=== PATIENT | male | born 1945 | race Caucasian/White ===

== ENCOUNTER 2016-10-30 17:52 | Emergency (ER) | payer OTHER ==
[~2016-10-30] VITALS: Ht 185.4 cm; Wt 118.0 kg
[~2016-10-30 17:52] MED LIST: COUM6TAB PO; ENOX120P SQ
[2016-10-30 17:53] VITALS: BP 125/68; PULSE 68; RESP 14; TEMP 97.9; O2SAT 98
--- NOTE | 2016-10-30 18:06 | PD ---
Physical Exam Date Seen by Provider: Oct 30, 2016 Time Seen by Provider: 18:04 Narrative 70 year old male presents to the emergency department for evaluation of left leg pain and swelling that has been worsening over the past 2 months. He reports history of DVT, DM. He is on Coumadin, last INR 2.0 two weeks ago. Patient awaiting bed placement. Data Data Last Documented VS Vital Signs Date Time Temp Pulse Resp B/P Pulse Ox O2 Delivery O2 Flow Rate FiO2 10/30/16 17:53 97.9 68 14 125/68 98 MDM Supervised Visit with KIRBY: Taryn Stevens Oct 30, 2016 18:06
[2016-10-30] MEDS ORDERED: FOLI1CAP7 PO (18:27)
[2016-10-30] MEDS ORDERED: COUM6TAB PO (18:27)
[2016-10-30] MEDS ORDERED: METF1000 PO (18:27)
[2016-10-30 18:28] VITALS: O2SAT 98
[2016-10-30] MEDS ORDERED: SODIUM CHLORIDE 0.9% FLUSH 10 ML FLUSH IV FLUSH PRN (18:30)
--- NOTE | 2016-10-30 18:30 | PD ---
HPI Chief Complaint: Pain: Acute or Chronic Time Seen by Provider: 18:21 Travel History International Travel<30 days: No Contact w/Intl Traveler<30days: No Traveled to known affect area: No History of Present Illness HPI 70-year-old male with history of DVT on Coumadin, diabetes, here for evaluation of left leg pain and swelling. The patient reports that he has had the symptoms for last 3 months, worse with a last couple of days. Initially the pain only bothered him at night with increased sensitivity to the left calf/ leg. He was seen by his primary care physician who told him that he likely has diabetic neuropathy. Pain today is moderate, more frequent, worse with movement and palpation. He denies chest pain or dyspnea. No fevers or chills. No trauma. He reports that he was here about 6 months ago and had a subtherapeutic INR. He reports that his last INR was 2.0, however month ago it was 1.7, and the month before that it was 1.3. PFSH Past Medical History Hx Anticoagulant Therapy: Yes AAA: Yes Cardiovascular Problems: Yes (ANGIOPLASTY ) High Cholesterol: Yes Diabetes: Yes Patient Takes Glucophage: Yes Deep Vein Thrombosis: Yes Hypertension: Yes Tetanus Vaccination: Unknown Past Surgical History Appendectomy: Yes Cardiac Surgery: Yes (ATRIOPLASTY) Tonsillectomy: Yes Social History Alcohol Use: Yes (RARELY) Tobacco Use: No Substance Use: No Allergies-Medications (Allergen,Severity, Reaction): Coded Allergies: No Known Allergies (Unverified , 10/30/16) Reported Meds & Prescriptions Reported Meds & Active Scripts Active Reported Folic Acid 800 Mcg Cap 800 Mcg PO DAILY Metformin (Metformin HCl) 1,000 Mg Tab 1,000 Mg PO BIDPC With meals Coumadin (Warfarin) 6 Mg Tab 9 Mg PO EVERYOTHER Coumadin (Warfarin) 6 Mg Tab 6 Mg PO EVERYOTHER Review of Systems Except as stated in HPI: all other systems reviewed are Neg Physical Exam Narrative GENERAL: Well-developed, well-nourished, comfortable, no acute distress. SKIN: Focused skin assessment warm/dry. Left mid/posterior leg with mild erythema and warmth, no signs of lymphangitis, no induration, no fluctuance. No crepitus. HEAD: Atraumatic. Normocephalic. EYES: Pupils equal and round. No scleral icterus. No injection or drainage. ENT: Mucous membranes pink and moist. NECK: Trachea midline. No JVD. CARDIOVASCULAR: Regular rate and rhythm. Bilateral dorsalis pedis pulses are brisk and equal. RESPIRATORY: No accessory muscle use. Clear to auscultation. Breath sounds equal bilaterally. MUSCULOSKELETAL: No obvious deformities. No clubbing. No cyanosis. Mild bilateral lower extremity edema. Bilateral feet are warm and dry. Skin exam as above. There is left calf tenderness. No right calf tenderness. No crepitus. NEUROLOGICAL: Awake and alert. No obvious cranial nerve deficits. Motor grossly within normal limits. Normal speech. PSYCHIATRIC: Appropriate mood and affect; insight and judgment normal. Data Data Last Documented VS Vital Signs Date Time Temp Pulse Resp B/P Pulse Ox O2 Delivery O2 Flow Rate FiO2 10/30/16 18:28 98 10/30/16 17:53 97.9 68 14 125/68 Orders Basic Metabolic Panel (Bmp) (10/30/16 18:25) Complete Blood Count With Diff (10/30/16 18:25) Act Partial Throm Time (Ptt) (10/30/16 18:25) Iv Access Insert/Monitor (10/30/16 18:25) Ecg Monitoring (10/30/16 18:25) Oximetry (10/30/16 18:25) Sodium Chloride 0.9% Flush (Ns Flush) (10/30/16 18:30) Tibia/Fibula (Ap/Lat) (10/30/16 ) Us Leg Venous Doppler (10/30/16 ) Prothrombin Time / Inr (Pt) (10/30/16 21:14) Cephalexin (Keflex) (10/30/16 22:00) Labs Laboratory Tests Test 10/30/16 18:35 White Blood Count 7.2 TH/MM3 Red Blood Count 4.19 MIL/MM3 Hemoglobin 13.2 GM/DL Hematocrit 39.5 % Mean Corpuscular Volume 94.3 FL Mean Corpuscular Hemoglobin 31.5 PG Mean Corpuscular Hemoglobin 33.4 % Concent Red Cell Distribution Width 13.8 % Platelet Count 151 TH/MM3 Mean Platelet Volume 8.8 FL Neutrophils (%) (Auto) 61.8 % Lymphocytes (%) (Auto) 22.6 % Monocytes (%) (Auto) 9.4 % Eosinophils (%) (Auto) 5.2 % Basophils (%) (Auto) 1.0 % Neutrophils # (Auto) 4.5 TH/MM3 Lymphocytes # (Auto) 1.6 TH/MM3 Monocytes # (Auto) 0.7 TH/MM3 Eosinophils # (Auto) 0.4 TH/MM3 Basophils # (Auto) 0.1 TH/MM3 CBC Comment DIFF FINAL Differential Comment Prothrombin Time 24.7 SEC Prothromb Time International 2.2 RATIO Ratio Activated Partial 31.4 SEC Thromboplast Time Sodium Level 141 MEQ/L Potassium Level 4.0 MEQ/L Chloride Level 105 MEQ/L Carbon Dioxide Level 29.5 MEQ/L Anion Gap 7 MEQ/L Blood Urea Nitrogen 30 MG/DL Creatinine 1.43 MG/DL Estimat Glomerular Filtration 49 ML/MIN Rate Random Glucose 131 MG/DL Calcium Level 8.9 MG/DL [facility] Medical Decision Making Medical Screen Exam Complete: Yes Emergency Medical Condition: Yes Medical Record Reviewed: Yes Differential Diagnosis DVT, subtherapeutic INR, cellulitis, necrotizing fasciitis unlikely, diabetic neuropathy, Narrative Course Vital signs show heart rate 68, blood pressure 125/60, pulse ox 98% on room air , oral temp of 97.9F. CBC is unremarkable. BMP is remarkable for BUN 30, creatinine 1.43, GFR 49 which is similar to labs back in February. INR is 2.2. Left leg ultrasound: CONCLUSION: 1. Suspected chronic change in the left popliteal vein with stranding. 2. There is occlusive thrombus in the posterior tibial vein. This appears new. The patient was made aware of all findings. He is resting comfortably. New left leg DVT likely formed when the patient's INR was subtherapeutic. He has no chest pain or dyspnea. Symptoms have been going on for last 2 months. There is some overlying erythema and maybe some mild cellulitis. I will start him on Keflex. There are no signs of phlegmasia cerulea dolens. I will also discharge him home with a prescription for a pain medication. He has a follow- up plan with his primary care physician in 5 days. I told him to keep this appointment. He was informed on when to return to the emergency Department sooner. He verbalizes understanding and agreement with plan. Diagnosis Primary Impression: DVT (deep venous thrombosis) Qualified Code: I82.442 - Deep vein thrombosis (DVT) of tibial vein of left lower extremity, unspecified chronicity Additional Impression: Left leg cellulitis Referrals: Primary Care Physician 3 days Additional Instructions: Follow-up with your primary care physician this week as scheduled. Return to the emergency department for worsening symptoms or any other concerns. Scripts Hydrocodone-Acetaminophen (Lortab)5-325 Mg Tab1 Tab PO Q6H PRN (PAIN) #15 TAB Ref 0 Prov:Genaro Webb MD 10/30/16 Cephalexin (Keflex)500 Mg [id number] Mg PO Q8H #30 CAP Ref 0 Prov:Genaro Webb MD 10/30/16 Disposition: 01 DISCHARGE HOME Condition: Stable Genaro Webb MD Oct 30, 2016 18:29
[2016-10-30 18:56] LABS: AUTOMATED NEUTROPHIL # 4.5 TH/MM3 (1.8-7.7); BASOPHIL # 0.1 TH/MM3 (0-0.2); EOSINOPHIL # 0.4 TH/MM3 (0-0.4); EOSINOPHIL % 5.2 % (0.0-4.0); HEMATOCRIT 39.5 % (39.0-51.0); HEMO FLAGS DIFF FINAL; LYMPH % 22.6 % (9.0-44.0); LYMPHOCYTE # 1.6 TH/MM3 (1.0-4.8); MEAN CELL VOLUME 94.3 FL (80.0-100.0); MEAN CORPUSCULAR HEMOGLOBIN 31.5 PG (27.0-34.0); MEAN CORPUSCULAR HGB CONC 33.4 % (32.0-36.0); MONO % 9.4 % (0.0-8.0); NEUT % 61.8 % (16.0-70.0); PLATELET COUNT 151 TH/MM3 (150-450); RED BLOOD COUNT 4.19 MIL/MM3 (4.50-5.90); RED CELL DISTRIBUTION WIDTH 13.8 % (11.6-17.2); WHITE BLOOD COUNT 7.2 TH/MM3 (4.0-11.0)
[2016-10-30 19:07] LABS: APTT (PATIENT) 31.4 SEC (24.3-30.1)
--- NOTE | 2016-10-30 19:08 | RADRPT ---
EXAM DATE/TIME: 10/30/2016 18:58 [facility] COMPARISON: No previous studies available for comparison. INDICATIONS : Persistant pain on posterior, medial aspect of lower leg. MEDICAL HISTORY : Blood clots. SURGICAL HISTORY : None. ENCOUNTER: Initial ACUITY: 2 months PAIN SCORE: 5/10 LOCATION: Left lower leg. FINDINGS: Two view examination of the left tibia demonstrates no evidence of fracture or dislocation. Bony min eralization is normal. There is soft tissue swelling especially around the ankle. Vascular calcificat ions are seen. CONCLUSION: Soft tissue swelling. Elliot Morocho MD on October 30, 2016 at 19:06 Board Certified Radiologist. This report was verified electronically.
[2016-10-30 19:26] LABS: BICARBONATE 29.5 MEQ/L (21.0-32.0)
--- NOTE | 2016-10-30 21:11 | RADRPT ---
EXAM DATE/TIME: 10/30/2016 18:55 [facility] COMPARISON: US LEG LEFT VENOUS DOPPLER, February 25, 2016, 16:14. INDICATIONS : Left leg pain and swelling. MEDICAL HISTORY : Hypercholesterolemia. Deep venous thrombosis. Hypertension. Anticoagulant therapy. Diabetes. SURGICAL HISTORY : Appendectomy. Tonsillectomy. Right knee surgery. Angioplasty. ENCOUNTER: Initial ACUITY: 1 week PAIN SCORE: 8/10 LOCATION: Left leg. TECHNIQUE: Venous ultrasound of the leg was performed from the inguinal ligament to the proximal calf. Real-sridhar e, color Doppler and spectral tracing, compression and augmentation techniques were used. FINDINGS: The common and femoral veins are patent. The popliteal vein is patent. There are septations within it . The patient previously had thrombus in this region. The linear areas likely reflect chronic strandi ng. The flow is normal and the popliteal vein. There is occlusive thrombus in the posterior tibial ve in. CONCLUSION: 1. Suspected chronic change in the left popliteal vein with stranding. 2. There is occlusive thrombus in the posterior tibial vein. This appears new. Elliot Morocho MD on October 30, 2016 at 21:07 Board Certified Radiologist. This report was verified electronically.
[2016-10-30 21:52] LABS: INTERNATIONAL NORMALIZED RATIO 2.2 RATIO; PROTHROMBIN TIME - PATIENT 24.7 SEC (9.8-11.6)
[2016-10-30] MEDS ORDERED: CEPHALEXIN MONOHYDRATE 500 MG CAP PO ONE (22:00)
[2016-10-30] MEDS ORDERED: HYDR-3533 PO (22:06)
[2016-10-30] MEDS ORDERED: CEPH-460 PO (22:06)
== END 2016-10-30 22:40 | disposition home or self-care (01) ==
LOC: NEPD 17:52
DX: I82.442 Acute embolism and thrombosis of left tibial vein (principal); L03.116 Cellulitis of left lower limb; I10 Essential (primary) hypertension; E11.9 Type 2 diabetes mellitus without complications; E78.00 Pure hypercholesterolemia, unspecified; Z79.01 Long term (current) use of anticoagulants; Z79.84 Long term (current) use of oral hypoglycemic drugs; Z86.718 Personal history of other venous thrombosis and embolism; Z86.79 Personal history of other diseases of the circulatory system
CPT/HCPCS: 73590; 80048; 85025; 85610; 85730; 93971